=== PATIENT | male | born 1970 | race Caucasian/White ===

== ENCOUNTER 2023-06-17 08:30 | Outpatient (AMB) | payer BC, SELFPAY ==
[2023-06-17 08:50] VITALS: BP 128/78; PULSE 81; TEMP 36.7; O2SAT 98; BMI 34.7
--- NOTE | 2023-06-17 08:50 | MHC.OFFWIV ---
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 Reporting symptoms of sinus congestion, sore throat and difficulty swallowing. Low-grade fever. No family member is sick. No recent travel. Patient reports symptoms of malaise and fatigue. PFSH Social History Patient Tobacco Use Status: Never used Tobacco Physical Exam Vital Signs: Last Vital Signs Temp 98.1 F 06/17/23 08:50 Pulse 81 06/17/23 08:50 BP 128/78 06/17/23 08:50 Pulse Ox 98 06/17/23 08:50 Oxygen Delivery Method Room Air 06/17/23 08:50 BMI result Body Mass Index 34.7 Const General: cooperative and healthy appearing Nutritional Appearance: well nourished Orientation/consciousness: patient oriented x3 Limitations: no limitations HEENT Head: Yes normal to inspection Eyes General: appearance normal, both eyes and all related structures Neck Neck: Yes normal visual inspection Chest Chest palpation & inspection: normal palpation of entire chest wall Resp Effort & Inspection: normal respiratory effort Neuro General: patient oriented x3 Assessment & Plan Assessment & Plan (1) Upper respiratory tract infection: Code(s): J06.9 - Acute upper respiratory infection, unspecified Plan Antibiotics ordered. Increase fluid intake. Tylenol for aches and pains. If symptoms worsen, follow-up here for a recheck. Medications: New azithromycin take 500 mg today (day 1), then 250 mg for 4 days (days 2-5) PO 6 tabs 0RF Coding Level of Care Code Est Pt Level 3 (00223) Diagnoses Upper respiratory tract infection J06.9
== END 2023-06-17 09:26 | disposition home or self-care (01) ==
PROVIDERS: Visit Provider Internal Medicine
DX: J06.9 Acute upper respiratory infection, unspecified (principal)
CPT/HCPCS: 99213

== ENCOUNTER 2023-12-16 08:55 | Outpatient (AMB) | payer BC, SELFPAY ==
--- NOTE | 2023-12-16 09:00 | A.SPINEOV_ITS ---
Intake Visit Reasons: consultation for back pain Intake Note: Mr. Dixon is here today c/o back pain. Wire Winding Machine Tender Required: No Allergies amoxicillin Allergy (Mild, Verified 06/17/23 08:51) Rash Assessment & Plan Assessment & Plan (1) Back pain: Code(s): M54.9 - Dorsalgia, unspecified Category: Medical Plan This is a very nice 52-year-old gentleman self-referred who presents to the office today for evaluation of chronic back pain. He tells me he has had the pain going back many many years. Did have a flare-up of sciatica last year that was treated with an epidural injection by Dr. Granados and that went away. Subsequent facet blocks did not seem to give him much relief. The pain can be present will sitting or standing. It can be present in the morning and in the evenings. When he lays down at night it seems to be okay for awhile but if he sleeping too long, he will get up in the morning because it will cause his back ache. He is done numerous rounds of various conservative treatments including ibuprofen, Tylenol, years of chiropractic therapy. The injections as outlined above. Currently has no leg pain it is primarily lower lumbar pain. He has not done any formal physical therapy to this point. No acupuncture. PMH: History of hypothyroidism, cholecystectomy, anxiety, depression Social hx: He does not smoke, drink use any recreational drugs Medications: Zoloft, lorazepam, levothyroxine and [id number]-hrbdlmj medications as needed Allergies: None Physical exam: Normal gait, strength in the lower extremities is normal. Patellar reflexes normal, absent reflexes of the Achilles on the right. Imaging review: There is a lumbar MRI done at [place] in October 2022 showing transitional anatomy, at L5-S1 there is a mild to moderately degenerative disc with a right-sided disc herniation compressing the right S1 nerve root. The rest of the lumbar spine just shows some mild disc degeneration. Alignment is normal. Impression: 52-year-old gentleman self-referred presents to the office today for evaluation of chronic low back pain going on for probably decades now at this point. Has self-treated this through the years with rn progressive care unit, [id number] medications and as of last year started doing cortisone injections. He had a herniated disc at L5-S1 with sciatica down the right leg and that went away thankfully after the epidural injection. Subsequent facet blocks gave him no significant improvement. The pain does limit his quality of life but does not stop him from doing most of the activities he wants to do. Changing positions frequently helps a lot. Laying down at night seems to be the best position for him. Neurological exam is intact with the exception of an absent Achilles reflex which is likely due to the disc herniation last year. I would like to get a set of standing flexion-extension x-rays on him to rule out any occult instability. I would also like to repeat the MRI to see if the disc herniation has resolved or not, given that the pain in his back seems to continue despite the improvement in the sciatica I am wondering if he has not had some further collapse of the disc over the last year since it herniated which may explain why his pain continues in the low back. At this time, the pain is not at a level where I think he would need to undergo fusion surgery, but it may come to that at some point down the road if things progress. We talked about adding physical therapy as part of his regimen, but I did encourage him to avoid the chiropractic treatments because they have only been giving him more pain with the adjustments. Thank you for allowing us to care for your patient. The total time spent with this visit with this patient was 45 minutes reviewing history, physical exam, lumbar imaging review, and implementation of treatment plan or further diagnostic testing Francisco Rodriguez MD,PhD [facility] Orders: Orders XR lumbar spine 4V min Today M54.9 - Dorsalgia, unspecified MR lumbar spine wo con Today M54.9 - Dorsalgia, unspecified Coding Level of Care Code New Pt Level 4 (74833) Diagnoses Back pain M54.9
== END 2023-12-16 09:53 | disposition home or self-care (01) ==
PROVIDERS: Visit Provider Physician Assistant
DX: M54.9 Dorsalgia, unspecified (principal)
CPT/HCPCS: 99204

== ENCOUNTER 2023-12-16 08:55 | Outpatient (REF) | payer BC, SELFPAY ==
--- NOTE | ~2023-12-16 | XR_ITS ---
EXAMINATION: XR LUMBOSACRAL SPINE WITH OBLIQUES CLINICAL INFORMATION: Back pain. COMPARISON: None available. TECHNIQUE: 4 views of the lumbar spine. FINDINGS: Surgical clips right upper quadrant. Facet arthritis in the lower lumbar spine. Mild multilevel lumbar spondylosis with loss of disc space height at L5-S1. Alignment maintained on flexion and extension views. XR/XR lumbar spine 4V min IMPRESSION: Mild multilevel lumbar spondylosis with loss of disc space height at L5-S1.
== END 2023-12-16 08:56 | disposition home or self-care (01) ==
LOC: HO.HOSX 08:55
PROVIDERS: Visit Provider Physician Assistant
DX: M54.9 Dorsalgia, unspecified (principal)
CPT/HCPCS: 72110

== ENCOUNTER 2024-08-21 10:43 | Outpatient (REF) | payer BC, SELFPAY ==
--- OUTSIDE RECORDS SUMMARY | 2024-08-21 15:41 | XMS_ITS | Clinical Summary ---
Author Organization [address] Address [address] [place] [address] Phone Care Team Providers Care Clinical Pharmacy Manager Name Role Phone Francisco Syed Primary Care Provider [phone] Allergies Active Allergy Reactions Criticality Noted Date [...] Care Team Description 07/14/2024 Telephone Adult Medicine [address] [phone] Francisco Syed PA 07/07/2024 Telephone Adult Medicine [address] [phone] Francisco Seyd PA provider call back 06/24/2024 2:30 PM EST Office Visit Adult Medicine [address] [phone] Francisco Syed PA Primary hypertension (Primary Dx); [...] Alive DMII, Prostate CA, HTN Mother Alive CA (71), HTN, H ypothyroid Sister 1 Sister [...] care for your loved ones. For example, child psychiatrist or elderly care for an older adult? [...] Care Team (Late st Contact Info) Description 09/11/2024 9:30 AM EST Appointment [facility] CT Scan [address] [place] [id number] 10/30/2024 3:00 PM EDT Office Visit Adult Medicine [facility] [address] [place] [phone] Francisco Syed PA [address] [place] [address] Health Maintenance Due Date Last Done Comments [...] LAB CHEMISTRY METHOD 07/01/2024 10:39 AM EST [facility] Blood Venous blood specimen / Unknown Venipuncture / Unknown 07/01/2024 8:38 AM EST 07/01/2024 8:38 AM EST Francisco RM LAB BLOOD ORDERAB LES [facility] [address] [place] [address], * Prostate specific antigen screen (06/26/2024 8:34 AM EST) [facility] PSA 0.57 0.00 - 4.00 ng/mL LAB CHEMISTRY METHOD 06/26/2024 10:42 AM EST [facility] Blood Venous blood specimen / Unknown Venipuncture / Unknown 06/26/2024 8:34 AM EST 06/26/2024 8:34 AM EST Narrative [facility] - 06/26/2024 10:42 AM EST The Siemens Advia App[employer] Chemiluminescent Immunoassay is used. Results obtained with different assay methods or kits cannot be used interchangeably. Results cannot be interpreted as absolute evidence of the presence or absence of malignant disease. Francisco RM LAB BLOOD ORDERAB LES [facility] [address] [place] [address], * Thyroid stimulating hormone with reflex to free t4 and free t3 (06/26/2024 8:34 AM EST) [facility] TSH 2.90 0.40 - 4.00 mcIU/mL LAB CHEMISTRY METHOD 06/26/2024 10:42 AM EST [facility] Blood Venous blood specimen / Unknown Venipuncture / Unknown 06/26/2024 8:34 AM EST 06/26/2024 8:34 AM EST Francisco MR LAB BLOOD ORDERAB LES [facility] [address] [place] [address], [place] [phone] * (ABNORMAL) Lipid panel with reflex to direct LDL (06/26/2024 8:34 AM EST) [facility] Cholesterol 186 0 - 200 mg/dL LAB CHEMISTRY METHOD 06/26/2024 10:39 AM EST [facility] Triglycerides 88 0 - 150 mg/dL LAB CHEMISTRY METHOD 06/26/2024 10:39 AM EST [facility] HDL 63 >=40 mg/dL LAB CHEMISTRY METHOD 06/26/2024 10:39 AM [facility] LDL Calculated 105(H) 0 - 100 mg/dL LAB CHEMISTRY METHOD 06/26/2024 10:39 AM EST [facility] VLDL Cholesterol Jose Antonio 17.6 mg/dL LAB CHEMISTRY METHOD 06/26/2024 10:39 AM [facility] Non HDL Chol. (LDL+VLDL) 123 <145 mg/dL LAB CHEMISTRY METHOD 06/26/2024 10:39 AM [facility] Chol/HDL Ratio 3.0 0.0 - 4.4 LAB CHEMISTRY METHOD 06/26/2024 10:39 AM [facility] Blood Venous blood specimen / Unknown Venipuncture / Unknown 06/26/2024 8:34 AM EST 06/26/2024 8:34 AM EST Francisco RM LAB BLOOD ORDERAB LES [facility] [address] [place] [address], * Hemoglobin A1c (06/26/2024 8:34 AM EST) Hemoglobin A1C 5.3 <6.5 % LAB CHEMISTRY METHOD 06/26/2024 1:42 PM EST [facility] Mean Bld Glu Estim. 105 mg/dL LAB CHEMISTRY METHOD 06/26/2024 1:42 PM EST [facility] Blood Venous blood specimen / Unknown Venipuncture / Unknown 06/26/2024 8:34 AM EST 06/26/2024 8:34 AM EST Francisco RM LAB BLOOD ORDERAB LES [facility] [address] [place] [address], * (ABNORMAL) Comprehensive metabolic panel (06/26/2024 8:34 AM EST) Sodium 141 133 - 145 mmol/L LAB CHEMISTRY METHOD 06/26/2024 10:39 AM [facility] Potassium 4.8 3.5 - 5.5 mmol/L LAB CHEMISTRY METHOD 06/26/2024 10:39 AM [facility] Chloride 109 96 - 110 mmol/L LAB CHEMISTRY METHOD 06/26/2024 10:39 AM [facility] CO2 28 21 - 32 mmol/L LAB CHEMISTRY METHOD 06/26/2024 10:39 AM [facility] Anion Gap 4 3 - 11 LAB CHEMISTRY METHOD 06/26/2024 10:39 AM [facility] Glucose 127(H) 70 - 100 mg/dL LAB CHEMISTRY METHOD 06/26/2024 10:39 AM [facility] BUN 10 5 - 25 mg/dL LAB CHEMISTRY METHOD 06/26/2024 10:39 AM [facility] Creatinine 0.88 0.70 - 1.30 mg/dL LAB CHEMISTRY METHOD 06/26/2024 10:39 AM [facility] eGFR 102 >=60 mL/min/1. 73m2 LAB CHEMISTRY METHOD 06/26/2024 10:39 AM [facility] Comment:Calculation based on the??Chronic Kidney Disease Epidemiology Collaboration (CKD-EPI) equation refit??without adjustment for race. BUN/Creatinine Ratio 11.4 LAB CHEMISTRY METHOD 06/26/2024 10:39 AM [facility] Calcium 9.7 8.5 - 10.5 mg/dL LAB CHEMISTRY METHOD 06/26/2024 10:39 AM [facility] AST (SGOT) 23 10 - 42 unit/L LAB CHEMISTRY METHOD 06/26/2024 10:39 AM [facility] ALT (SGPT) 43 10 - 60 unit/L LAB CHEMISTRY METHOD 06/26/2024 10:39 AM [facility] Alkaline Phosphatase 88 42 - 121 unit/L LAB CHEMISTRY METHOD 06/26/2024 10:39 AM [facility] Total Protein 6.9 6.0 - 8.0 g/dL LAB CHEMISTRY METHOD 06/26/2024 10:39 AM [facility] Albumin 3.8 3.2 - 5.0 g/dL LAB CHEMISTRY METHOD 06/26/2024 10:39 AM [facility] Total Bilirubin 0.5 0.0 - 1.4 mg/dL LAB CHEMISTRY METHOD 06/26/2024 10:39 AM [facility] Blood Venous blood specimen / Unknown Venipuncture / Unknown 06/26/2024 8:34 AM EST 06/26/2024 8:34 AM EST Francisco MR LAB BLOOD ORDERAB LES [facility] [address] [place] [address], * Hepatitis C Screening (05/21/2022) Hepatitis C Screening ABSTRACTED Historical Provider MD DON Gaytan * Colonoscopy (05/23/2020) Colonoscopy no interpretation , abstracted Anatomical Region Laterality Modality Other Historical Provider MD DON Gaytan from Last 3 Months or Most Recently Relevant to Health Maintenance Care Teams Clinical Pharmacy Manager Relationship Specialty Start Date End Date Francisco Syed PA [address] [place] [id number] PCP - General Internal Medicine 06/24/24
[2024-08-21 16:20] LABS: Influenza A PCR NEGATIVE (Negative); Influenza B PCR NEGATIVE (Negative); Resp Syncy Virus RNA Qual PCR NEGATIVE (Negative); SARS COV2 PCR INHOUSE NEGATIVE (Negative)
== END 2024-08-21 10:44 | disposition home or self-care (01) ==
LOC: HO.LNP 10:43
PROVIDERS: Visit Provider Physician Assistant
DX: B34.9 Viral infection, unspecified (principal); R09.89 Other specified symptoms and signs involving the circulatory and respiratory systems
CPT/HCPCS: 0241U

== ENCOUNTER 2024-08-21 10:43 | Outpatient (AMB) | payer BC, SELFPAY ==
--- NOTE | 2024-08-21 11:25 | MHC.OFFWIV ---
Intake Vital Signs 08/21/24 11:29 Weight 106.141 kg BP 122/80 Blood Pressure Location Rt brachial Position Sitting Pulse 76 Pulse Source Pulse Oximeter Temp 97.8 F Temp Source Oral Pulse Oximetry (%) 98 Oxygen Delivery Method Room Air Intake Visit Reasons: EP ? sinus infection Intake Note: Patient here for sinus congestion, post nasal drip, head congestion that has been present since Saturday. Patient Tobacco Use Status: Never used Tobacco Allergies amoxicillin Allergy (Mild, Verified 08/21/24 11:30) Rash Do you need a note to return to daycare/school/sports/work: No HPI HPI Comments History of Present Illness Details 53 year old male presents w/ sinus congestion, post nasal drip, head congestion. cough that has been present since Saturday. Patient suffers from sinus infections yearly ( multiple/year) reports this feels simalar. He is concerned however becuase his coworker tested + for the flu and he was around him on saturday. denies fevers, chills, cp, sob, n/v/d, abd pain PE benign hx and pe concerning for sinusitis vs viral illness. Unlikley pe, bronchitits, acs, pna, meningitis, encephalitis Plan- viral test will send z pack patient knows to not take this unless viral test are negative Knows to return w/ new or worsening sx. [facility] Social History Patient Tobacco Use Status: Never used Tobacco Review of Systems Const All systems reviewed & are unremarkable except as noted in HPI and below Physical Exam Vital Signs: Last Vital Signs Temp 97.8 F 08/21/24 11:29 Pulse 76 08/21/24 11:29 BP 122/80 08/21/24 11:29 Pulse Ox 98 08/21/24 11:29 Oxygen Delivery Method Room Air 08/21/24 11:29 vss Appearance: Alert.? Oriented X3.? No acute distress.? Head: Normocephalic, atraumatic, no step-offs or deformities Eyes: Pupils equal, round and reactive to light.? CVS: Normal heart rate and rhythm.? Pulses normal.? Respiratory: No respiratory distress.? Breath sounds normal.? Abdomen: Soft and nontender.? Skin: Skin warm and dry.? Normal skin color.? Normal skin turgor.? Extremities: No lower extremity edema.? No calf ttp. 5/5 strength to bilateral upper and lower extremities Back: No midline tenderness, no C-spine tenderness, full range of motion, no CVA tenderness bilaterally Neuro: Oriented X 3.? No motor deficit.? No sensory deficit. CN 2-12 intact Assessment & Plan Assessment & Plan (1) Viral illness: Code(s): B34.9 - Viral infection, unspecified Plan Take your medications as prescribed. If you were prescribed antibiotics today, it is important that you take your medication to their entirety, do not skip any doses, do not finish them early. Follow-up with your primary care provider this week. Return to the emergency department with new or worsening symptoms. In case of emergency call 911 Coding Level of Care Code Est Pt Level 3 (74143) Diagnoses Viral illness B34.9
[2024-08-21 11:29] VITALS: BP 122/80; PULSE 76; TEMP 36.6; O2SAT 98
--- OUTSIDE RECORDS SUMMARY | 2024-08-21 12:17 | XMS_ITS | Encounter Summary ---
Author Organization [facility] Address [address] [place] [address] Care Team Providers Care Giant Tire Repairer Name Role Phone Dino Harrell MD Primary Care Provider Unavail able Francisco Syed PA-C Primary Care Provider [phone] Encounter Details Date Type Department Care Team Description 01/23/2019 Hospital Medical Records [address] [place] [address] DesiletsSteve MD Social History Tobacco Use Types Packs/Day Years Used Date Smoking Tobacco: Former Cigarettes 1 15 Q uit: 10/27/2014 Smokeless Tobacco: Never Alcohol Use Standard Drinks/Week Comments Yes 5 (1 standard drink = 0.6 oz pur e alcohol) occ Sex Assigned at Date Recorded Male 11/10/2020 6:18 AM E DT documented as of this encounter Plan of Treatment Not on file documented as of this encounter Visit Diagnoses Not on filedocumented in this encounter Care Teams Giant Tire Repairer Relationship Specialty Start Date End Date Dino Harrell MD PCP - General Internal Medicine 04/21/12 03/22/20 Francisco Syed PA-C [address] [place] [id number] PCP - General Internal Medicine 03/23/20 documented as of this encounter
--- OUTSIDE RECORDS SUMMARY | 2024-08-21 12:17 | XMS_ITS | Encounter Summary ---
Author Organization [facility] Address [address] [place] [address] Care Team Providers Care Automation Software Engineer Name Role Phone Dino Harrell MD Primary Care Provider Unavail able Francisco Syed PA-C Primary Care Provider [phone] Encounter Details Date Type Department Care Team Description 06/12/2019 Hospital Medical Records [address] [place] [address] Charles Mays MD [address] [place] [id number] Social History Tobacco Use Types Packs/Day Years [...] on filedocumented in this encounter Care Teams Automation Software Engineer Relationship Specialty Start Date End Date Dino Harrell MD PCP - General Internal Medicine 04/21/12 03/22/20 Francisco Syed PA-C [address] [place] [address] [id number] PCP - General Internal Medicine 03/23/20 documented as of this encounter
--- OUTSIDE RECORDS SUMMARY | 2024-08-21 12:17 | XMS_ITS | Encounter Summary ---
Author Organization [facility] Address [address] [place] [address] Care Team Providers Care Database Architect Name Role Phone Dino Harrell MD Primary Care Provider Unavail able Francisco Syed PA-C Primary Care Provider [phone] Encounter Details Date Type Department Care Team Description 01/11/2014 Controlled Substance Contract with Plan Medical Records [address] [place] [address] Abstract, Provider Social History Tobacco Use Types Packs/Day Years Used Date Smoking Tobacco: Some Days Cigarettes Smokeless Tobacco: Never Alcohol Use Standard Drinks/Week Comments Yes 5 (1 standard drink = 0.6 oz pur e alcohol) Sex Assigned at Date Recorded Male 11/10/2020 6:18 AM E DT documented as of this encounter Plan of Treatment Not on file documented as of this encounter Visit Diagnoses Not on filedocumented in this encounter Care Teams Database Architect Relationship Specialty Start Date End Date Dino Harrell MD PCP - General Internal Medicine 04/21/12 03/22/20 Francisco Syed PA-C [address] [place] [address] PCP - General Internal Medicine 03/23/20 documented as of this encounter
--- OUTSIDE RECORDS SUMMARY | 2024-08-21 12:17 | XMS_ITS | Encounter Summary ---
Author Organization [facility] Address [address] [place] [address] Care Team Providers Care Filter Press Tender Head Name Role Phone Dino Harrell MD Primary Care Provider Unavail able Francisco Syed PA-C Primary Care Provider [phone] Encounter Details Date Type Department Care Team Description 07/03/2019 [facility] Medical Records [address] [place] [id number] Abstract, Provider Social History Tobacco Use Types Packs/Day Years Used Date Smoking Tobacco: Former Cigarettes Q uit: 10/27/2014 Smokeless Tobacco: Never Alcohol Use Standard Drinks/Week Comments Yes 5 (1 standard drink = 0.6 oz pur e alcohol) Sex Assigned at Date Recorded Male 11/10/2020 6:18 AM E DT documented as of this encounter Plan of Treatment Not on file documented as of this encounter Visit Diagnoses Not on filedocumented in this encounter Care Teams Filter Press Tender Head Relationship Specialty Start Date End Date Dino Harrell MD PCP - General Internal Medicine 04/21/12 03/22/20 Francisco Syed PA-C [address] [place] [id number] PCP - General Internal Medicine 03/23/20 documented as of this encounter
--- OUTSIDE RECORDS SUMMARY | 2024-08-21 12:17 | XMS_ITS | Clinical Summary ---
Author Organization [address] Address [address] [place] [address] Phone Care Team Providers Care Improvement Spec Name Role Phone Francisco Syed Primary Care Provider [phone] Allergies Active Allergy Reactions Criticality Noted Date Comments Amoxicillin 06/07/2017 rash Medications Medication Sig Dispensed Refills Start Date End Date Status levothyroxine (Synthroid) 50 mcg tablet Take 1 tablet (50 mcg total) by mouth 1 (one) time each day. 04/23/2024 Active naproxen (NAPROSYN) 500 mg tablet Take 1 Tablet by mouth 2 times daily (with meals). 10/26/2022 Active albuterol HFA (PROAIR HFA ; PROVENTIL HFA ; VENTOLIN HFA) 90 mcg/actuation inhaler Inhale 2 Puffs into the lungs 4 times daily as needed for Cough, Wheezing or Shortness of Breath. 09/16/2019 Active fluticasone propionate (FLONASE) 50 mcg/actuation nasal spray Administer 1 spray into each nostril 2 (two) times a day. Shake gently. Before first use, prime pump. After use, clean tip and replace cap. 48 g 1 06/24/2024 Active sertraline (ZOLOFT) 100 mg tablet Take 1.5 tablets (150 mg total) by mouth 1 (one) time each day. 135 each 3 06/24/2024 Active LORazepam (ATIVAN) 0.5 mg tablet Take 1 tablet (0.5 mg total) by mouth 1 (one) time each day. Max Daily Amount: 0.5 mg 30 tablet 06/24/2024 Active testosterone 20.25 mg/1.25 gram (1.62 %) gel in metered-dose pumpIndications:Hy pogonadism in male Place 2 Act (40.5 mg of testosterone total) on the skin 1 (one) time each day. Max Daily Amount: 40.5 mg of testosterone 75 g 5 07/13/2024 Active Active Problems Problem Noted Date Diagnosed Date Hypogonadism in male 07/09/2024 Choledocholithiasis 03/15/2019 Overview (05/12/2024): ERCP and stone extraction, 01/23/2019 Acute cholangitis 02/09/2019 Overview (05/12/2024): ERCP 01/23/2019, Dr. Lei Prediabetes 08/22/2013 Mixed hyperlipidemia 12/10/2012 Overview (05/12/2024): LDL cholesterol 137, 05/06/2012. Anxiety 04/22/2012 GERD (gastroesophageal reflux disease) 2 HTN (hypertension) 04/22/2012 Hypothyroidism 04/22/2012 Obesity (BMI 30-39.9) 04/22/2012 Encounters Date Type Department Care Team Description 07/14/2024 Telephone Adult Medicine [address] [phone] Francisco Syed PA 07/07/2024 Telephone Adult Medicine [address] [phone] Francisco Syed PA provider call back 06/24/2024 2:30 PM EST Office Visit Adult Medicine [address] [phone] Francisco Syed PA Primary hypertension (Primary Dx); Need for prophylactic vaccination and inoculation against influenza; Mixed hyperlipidemia; Prediabetes; Obesity (BMI 30-39.9); Hypothyroidism, unspecified type; Choledocholithiasis; Anxiety; Gastroesophageal reflux disease without esophagitis; Pulsatile tinnitus; Dizziness from Last 3 Months Immunizations Name Administration Dates Next Due Influenza Quadravalent, MDCK , 0.5ml, with preservative (Flucelvax) 6mo and older 06/07/2017 Influenza trivalent, 0.5mL, preservative free (Fluarix; FluLaval; Fluzone) ages 6mo and older (Afluria) 3 years and older 06/15/2016,06/12/2013,06/12/2012 Influenza trivalent, MDCK, 0 .5mL, preservative free (Flucelvax) 6mo and older 06/24/2024 Pfizer (ages 12 & older) Bivalent, COVID-19 08/30 Pfizer SARS-CoV-2 COVID-19, mRNA, LNP-S, preservative free 12/16/2020,11/23/2020 Td Tetanus diptheria (Tdvax) 7yo and older 10/26 Tdap Tetanus diptheria acell ular pertussis (Boostrix; Adacel) 7yo and older 04/22/2012 Zoster recombinant (Shingrix ) 19yo and older 01/09/2021 Surgical History Surgery Date Site/Laterality Comments MULTIPLE TOOTH EXTRACTIONS PROCEDURE: HISTORICAL DENTAL EXTRACTION OTHER SURGICAL HISTORY PROCEDURE: ---- OTHER ----; COMMENT: anal fissure CHOLECYSTECTOMY PROCEDURE: HISTORICAL CHOLECYSTECTOMY Medical History Medical History Date Comments Hypothyroidism 2003 DX:Hypothyroidis m HTN (hypertension) 2003 DX:HTN (hyper tension) Obesity (BMI 30-39.9) DX:Obesity (BMI 30-39.9) HTN (hypertension) 04/22/2012 DX:HTN (hyper tension) Hypothyroidism 04/22/2012 DX:Hypothyroidis m GERD (gastroesophageal reflux disease) 04/22/2012 DX:GERD (gastroesophageal reflux disease) Anxiety 04/22/2012 DX:Anxiety Obesity (BMI 30-39.9) 04/22/2012 DX:Obesity (BMI 30-39.9) Family History Medical History Relation Name Comments Diabetes Father Esophageal cancer Father Prostate cancer Father Heart attack Mother Breast cancer Sister 1 Relation Name Status Comments Brother 1 Alive HTN, DMII Brother 2 Alive Father Alive DMII, Prostate CA, HTN Mother Alive [place] (71), HTN, H ypothyroid Sister 1 Sister 2 Alive HTN Sister 3 Alive Social History Tobacco Use Types Packs/Day Years Used Date Smoking Tobacco: Former Cigarettes Q uit: 10/27/2014 Smokeless Tobacco: Never Tobacco Cessation:Counseling Given: Not Answered Alcohol Use Standard Drinks/Week Comments Yes 5 (1 standard drink = 0.6 oz pur e alcohol) Housing Instability Answer Date Recorde d Are you worried that in the next 2 months you may not have stable housing? No 06/17/2024 Food Access & Nutrition Answer Date Rec orded Do you have access to a vari ety of food including fruits and vegetables? Yes 06/17/2024 Access to Healthcare Answer Date Record ed Within the last 3 months, ho w many times did you visit the emergency department for your medical care? 0 06/17/2024 Health Literacy Answer Date Recorded How often do you need to hav e someone help you when you read instructions, pamphlets, or other written material from your doctor or pharmacy? Never 06/17/2024 Caregiver: How often do you need to have someone help you when you read instructions, pamphlets, or other written material from your doctor or pharmacy? Not on file 06/17/2024 Financial Risk Answer Date Recorded How hard is it for you to pa y for the very basics like food, housing, medical care, and air conditioning / heating? Not very hard 06/17/2024 Transportation Answer Date Recorded Has the lack of transportati on kept you from meetings, work, or from getting things needed for daily living? No Has the lack of transportati on kept you from medical appointments or from getting medications? No 06/17/2024 Social Isolation Answer Date Recorded How often do you feel lonely or isolated from th ose around you? Never 06/17/2024 Food Risk Answer Date Recorded Within the past 12 months we worried whether our food would run out before we got money to buy more. Never true 06/17/2024 Within the past 12 months th e food we bought just didn't last and we didn't have money to get more. Never true 06/17/2024 Dependent Care Answer Date Recorded Do you need help finding or paying for care for your loved ones. For example, early childhood lead teacher or elderly care for an older adult? No 06/17/2024 Education Answer Date Recorded Do you think completing more education or training, like finishing a GED, going to college, or learning a trade, would be helpful for you? No 06/17/2024 Employment and Income Answer Date Recor ded During the last four weeks, have you been actively looking for work? No 06/17/2024 Living Situation Answer Date Recorded What is your living situation? 1 08/17/2023 Sex and Gender Information Value Date Recorded Sex Assigned at Not on file Gender Identity Not on file Sexual Orientation Not on file Job Start Date Occupation Industry Not on file Not on file Not on file Obstetrics History Last Filed Vital Signs Vital Sign Reading Time Taken Comments Blood Pressure 119/83 06/24/2024 2:31 PM EST Pulse 104 06/24/2024 2:31 PM EST Temperature 36.7 ??C (98.1 ??F) 06/24/2024 2:31 PM ES T Respiratory Rate 14 06/24/2024 2:31 PM EST Oxygen Saturation - - Inhaled Oxygen Concentration - - Weight 108 kg (237 lb) 06/24/2024 2:31 PM EST Height 177.8 cm (5' 10 ) 06/24/2024 2:31 PM EST Body Mass Index 34.01 06/24/2024 2:31 PM EST Plan of Treatment Upcoming Encounters Date Type Department Care Team (Late st Contact Info) Description 10/30/2024 3:00 PM EDT Office Visit Adult Medicine [facility] [address] [place] [address] Francisco Syed PA [address] [place] [address] Health Maintenance Due Date Last Done Comments Hepatitis B Vaccines (1 of 3 - 19+ 3-dose series) 12/20/1987 Zoster Vaccines (2 of 2) 03/06/2021 01/09/2021 HIV Screening 07/07/2022 COVID-19 Vaccine ( season) 2024 09/20/2022, 07/09/2021, 12/16/2020, Additional history exists Depression Screening 06/17/2025 06/17/2024 Social Influencers of Health Screening 06/17/2025 06/17/2024 Hypertension/CHF/CAD Annual BMP Blood Test 06/26/2025 06/26/2024, 10/30/2023 Cholesterol Screening (Lipid Panel) 06/26/2029 06/26/2024, 10/30/2023 Colorectal Cancer Screening: Colonoscopy 05/23/2030 05/23/2020 DTaP,Tdap,and Td Vaccines (3 - Td or Tdap) 10/26/2032 10/26/2022, 04/22/2012 Hepatitis C Screening Completed 05/21/2022 Influenza Vaccine Completed 06/24/2024, , 06/07/2017, Additional history exists HIB Vaccines Aged Out No longer eligi ble based on patient's age to complete this topic HPV Vaccines Aged Out No longer eligi ble based on patient's age to complete this topic Hepatitis A Vaccines Aged Out No long er eligible based on patient's age to complete this topic IPV Vaccines Aged Out No longer eligi ble based on patient's age to complete this topic MMR Vaccines Aged Out No longer eligi ble based on patient's age to complete this topic Meningococcal ACWY Vaccine Aged Out N o longer eligible based on patient's age to complete this topic Pneumococcal Vaccine: Pediatrics (0 to 5 Years) and At-Risk Patients (6 to 64 Years) Aged Out No longer eligible based on patient's age to complete this topic RSV Immunization Patients Under 20 months Aged Out No longer eligible based on patient's age to complete this topic Varicella Vaccines Aged Out No longer eligible based on patient's age to complete this topic Procedures Procedure Name Priority Date/Time Associated Diagnosis Comments TESTOSTERONE, TOTAL Routine 07/01/2024 8 :38 AM EST Hypogonadism male PROSTATE SPECIFIC ANTIGEN SCREEN Routine 06/26/2024 8:34 AM EST Need for prophylactic vaccination and inoculation against influenza Mixed hyperlipidemia Prediabetes Obesity (BMI 30-39.9) Primary hypertension Hypothyroidism, unspecified type Choledocholithiasis Anxiety Gastroesophageal reflux disease without esophagitis THYROID STIMULATING HORMONE WITH REFLEX TO FREE T4 AND FREE T3 Routine 06/26/2024 8:34 AM EST Need for prophylactic vaccination and inoculation against influenza Mixed hyperlipidemia Prediabetes Obesity (BMI 30-39.9) Primary hypertension Hypothyroidism, unspecified type Choledocholithiasis Anxiety Gastroesophageal reflux disease without esophagitis HEMOGLOBIN A1C Routine 06/26/2024 8:34 AM EST Need for prophylactic vaccination and inoculation against influenza Mixed hyperlipidemia Prediabetes Obesity (BMI 30-39.9) Primary hypertension Hypothyroidism, unspecified type Choledocholithiasis Anxiety Gastroesophageal reflux disease without esophagitis COMPREHENSIVE METABOLIC PANEL Routine 06/26/2024 8:34 AM EST Need for prophylactic vaccination and inoculation against influenza Mixed hyperlipidemia Prediabetes Obesity (BMI 30-39.9) Primary hypertension Hypothyroidism, unspecified type Choledocholithiasis Anxiety Gastroesophageal reflux disease without esophagitis LIPID PANEL WITH REFLEX TO DIRECT LDL Routine 06/26/2024 8:34 AM EST Need for prophylactic vaccination and inoculation against influenza Mixed hyperlipidemia Prediabetes Obesity (BMI 30-39.9) Primary hypertension Hypothyroidism, unspecified type Choledocholithiasis Anxiety Gastroesophageal reflux disease without esophagitis TESTOSTERONE, TOTAL Routine 06/26/2024 8 :34 AM EST Need for prophylactic vaccination and inoculation against influenza Mixed hyperlipidemia Prediabetes Obesity (BMI 30-39.9) Primary hypertension Hypothyroidism, unspecified type Choledocholithiasis Anxiety Gastroesophageal reflux disease without esophagitis HEPATITIS C SCREENING Routine 05/21/2022 COLONOSCOPY Routine 05/23/2020 from Last 3 Months or Most Recently Relevant to Health Maintenance Results * Testosterone, total (07/01/2024 8:38 AM EST) Only the most recent of2 resultswithin the time period is included. Testosterone 246 229 - 902 ng/dL LAB CHEMISTRY METHOD 07/01/2024 10:39 AM EST [facility] Blood Venous blood specimen / Unknown Venipuncture / Unknown 07/01/2024 8:38 AM EST 07/01/2024 8:38 AM EST Francisco RM LAB BLOOD ORDERAB LES [facility] [address] [place] [address], * Prostate specific antigen screen (06/26/2024 8:34 AM EST) PSA 0.57 0.00 - 4.00 ng/mL LAB CHEMISTRY METHOD 06/26/2024 10:42 AM EST [facility] Blood Venous blood specimen / Unknown Venipuncture / Unknown 06/26/2024 8:34 AM EST 06/26/2024 8:34 AM EST Narrative [facility] - 06/26/2024 10:42 AM EST The Siemens [employer] Chemiluminescent Immunoassay is used. Results obtained with different assay methods or kits cannot be used interchangeably. Results cannot be interpreted as absolute evidence of the presence or absence of malignant disease. Francisco RM LAB BLOOD ORDERAB LES Performing Organization Address City/[facility]/ZIP Co de Phone Number [facility] [address] [place] [address], * Thyroid stimulating hormone with reflex to free t4 and free t3 (06/26/2024 8:34 AM EST) Pathologist [facility] [place] TSH 2.90 0.40 - 4.00 mcIU/mL LAB CHEMISTRY METHOD 06/26/2024 10:42 AM EST [facility] Blood Venous blood specimen / Unknown Venipuncture / Unknown 06/26/2024 8:34 AM EST 06/26/2024 8:34 AM EST Francisco RM LAB BLOOD ORDERAB LES [facility] [address] [place] [address], [place] [phone] * (ABNORMAL) Lipid panel with reflex to direct LDL (06/26/2024 8:34 AM EST) Pathologist [facility] [place] Cholesterol 186 0 - 200 mg/dL LAB CHEMISTRY METHOD 06/26/2024 10:39 AM EST [facility] Triglycerides 88 0 - 150 mg/dL LAB CHEMISTRY METHOD 06/26/2024 10:39 AM [facility] HDL 63 >=40 mg/dL LAB CHEMISTRY METHOD 06/26/2024 10:39 AM [facility] LDL Calculated 105(H) 0 - 100 mg/dL LAB CHEMISTRY METHOD 06/26/2024 10:39 AM [facility] VLDL Cholesterol Jose Antonio 17.6 mg/dL LAB CHEMISTRY METHOD 06/26/2024 10:39 AM [facility] Non HDL Chol. (LDL+VLDL) 123 <145 mg/dL LAB CHEMISTRY METHOD 06/26/2024 10:39 AM [facility] Chol/HDL Ratio 3.0 0.0 - 4.4 LAB CHEMISTRY METHOD 06/26/2024 10:39 AM [facility] Blood Venous blood specimen / Unknown Venipuncture / Unknown 06/26/2024 8:34 AM EST 06/26/2024 8:34 AM EST Francisco RM LAB BLOOD ORDERAB LES [facility] [address] [place] [address], * Hemoglobin A1c (06/26/2024 8:34 AM EST) Hemoglobin A1C 5.3 <6.5 % LAB CHEMISTRY METHOD 06/26/2024 1:42 PM EST [facility] Mean Bld Glu Estim. 105 mg/dL LAB CHEMISTRY METHOD 06/26/2024 1:42 PM [facility] Blood Venous blood specimen / Unknown Venipuncture / Unknown 06/26/2024 8:34 AM EST 06/26/2024 8:34 AM EST Francisco RM LAB BLOOD ORDERAB LES [facility] [address] [place] [address], [place] [phone] * (ABNORMAL) Comprehensive metabolic panel (06/26/2024 8:34 AM EST) Sodium 141 133 - 145 mmol/L LAB CHEMISTRY METHOD 06/26/2024 10:39 AM [facility] Potassium 4.8 3.5 - 5.5 mmol/L LAB CHEMISTRY METHOD 06/26/2024 10:39 AM [facility] Chloride 109 96 - 110 mmol/L LAB CHEMISTRY METHOD 06/26/2024 10:39 AM [facility] CO2 28 21 - 32 mmol/L LAB CHEMISTRY METHOD 06/26/2024 10:39 AM [facility] Anion Gap 4 3 - 11 LAB CHEMISTRY METHOD 06/26/2024 10:39 AM [facility] Glucose 127(H) 70 - 100 mg/dL LAB CHEMISTRY METHOD 06/26/2024 10:39 AM [facility] BUN 10 5 - 25 mg/dL LAB CHEMISTRY METHOD 06/26/2024 10:39 AM [facility] Creatinine 0.88 0.70 - 1.30 mg/dL LAB CHEMISTRY METHOD 06/26/2024 10:39 AM [facility] eGFR 102 >=60 mL/min/1. 73m2 LAB CHEMISTRY METHOD 06/26/2024 10:39 AM [facility] Comment:Calculation based on the??Chronic Kidney Disease Epidemiology Collaboration (CKD-EPI) equation refit??without adjustment for race. BUN/Creatinine Ratio 11.4 LAB CHEMISTRY METHOD 06/26/2024 10:39 AM [facility] Calcium 9.7 8.5 - 10.5 mg/dL LAB CHEMISTRY METHOD 06/26/2024 10:39 AM [facility] AST (SGOT) 23 10 - 42 unit/L LAB CHEMISTRY METHOD 06/26/2024 10:39 AM [facility] ALT (SGPT) 43 10 - 60 unit/L LAB CHEMISTRY METHOD 06/26/2024 10:39 AM EST [facility] Alkaline Phosphatase 88 42 - 121 unit/L LAB CHEMISTRY METHOD 06/26/2024 10:39 AM EST [facility] Total Protein 6.9 6.0 - 8.0 g/dL LAB CHEMISTRY METHOD 06/26/2024 10:39 AM EST [facility] Albumin 3.8 3.2 - 5.0 g/dL LAB CHEMISTRY METHOD 06/26/2024 10:39 AM [facility] Total Bilirubin 0.5 0.0 - 1.4 mg/dL LAB CHEMISTRY METHOD 06/26/2024 10:39 AM [facility] Blood Venous blood specimen / Unknown Venipuncture / Unknown 06/26/2024 8:34 AM EST 06/26/2024 8:34 AM EST Francisco RM LAB BLOOD ORDERAB LES [facility] [address] [place] [address], * Hepatitis C Screening (05/21/2022) Pathologist [facility] Hepatitis C Screening ABSTRACTED Historical Provider MD DON JOSHI E * Colonoscopy (05/23/2020) Colonoscopy no interpretation , abstracted Anatomical Region Laterality Modality Other Historical Provider MD DON Gaytan from Last 3 Months or Most Recently Relevant to Health Maintenance Care Teams Improvement Spec Relationship Specialty Start Date End Date Francisco Syed PA [address] [place] [address] PCP - General Internal Medicine 06/24/24
--- OUTSIDE RECORDS SUMMARY | 2024-08-21 12:18 | XMS_ITS | Encounter Summary ---
Author Organization [facility] Address [address] [place] [address] Care Team Providers Care Brake Specialist Name Role Phone Francisco Syed PA-C Primary Care Provider [phone] Encounter Details Date Type Department Care Team Description 03/26/2023 Oil Burner Repairer Report Medical Records [address] [place] [address] Ramón Krause PA-C Social History Tobacco Use Types Packs/Day Years [...] on filedocumented in this encounter Care Teams Brake Specialist Relationship Specialty Start Date End Date Francisco Syed PA-C [address] [place] [id number] PCP - General Internal Medicine 03/23/20 documented as of this encounter
--- OUTSIDE RECORDS SUMMARY | 2024-08-21 12:18 | XMS_ITS | Encounter Summary ---
Author Organization [facility] Address [address] [place] [address] Care Team Providers Care Radio Repairer Domestic Name Role Phone Dino Harrell MD Primary Care Provider Unavail able Francisco Syed PA-C Primary Care Provider [phone] Encounter Details Date Type Department Care Team Description 12/12/2012 Release of Information Medical Records [address] [place] [address] Abstract, Provider Social History Tobacco Use Types [...] on filedocumented in this encounter Care Teams Radio Repairer Domestic Relationship Specialty Start Date End Date Dino Harrell MD PCP - General Internal Medicine 04/21/12 03/22/20 Francisco Syed PA-C [address] [place] [id number] PCP - General Internal Medicine 03/23/20 documented as of this encounter
--- OUTSIDE RECORDS SUMMARY | 2024-08-21 12:18 | XMS_ITS | Encounter Summary ---
Author Organization [facility] Address [address] [place] [address] Care Team Providers Care Soaker Meat Name Role Phone Dino Harrell MD Primary Care Provider Unavail able Francisco Syed PA-C Primary Care Provider [phone] Encounter Details Date Type Department Care Team Description 07/10/2014 Refill Adult Medicine [address] [address] Dino Harrell MD Social History Tobacco Use Types Packs/Day [...] on filedocumented in this encounter Care Teams Soaker Meat Relationship Specialty Start Date End Date Dino Harrell MD PCP - General Internal Medicine 04/21/12 03/22/20 Francisco Syed PA-C [address] [place] [id number] PCP - General Internal Medicine 03/23/20 documented as of this encounter
--- OUTSIDE RECORDS SUMMARY | 2024-08-21 12:18 | XMS_ITS | Encounter Summary ---
Author Organization [facility] Address [address] [place] [address] Care Team Providers Care Manager Diversity Name Role Phone Dino Harrell MD Primary Care Provider Unavail able Francisco Syed PA-C Primary Care Provider [phone] Encounter Details Date Type Department Care Team Description 04/24/2012 Release of Information Medical Records [address] [place] [address] Abstract, Provider Social History Tobacco Use Types [...] on filedocumented in this encounter Care Teams Manager Diversity Relationship Specialty Start Date End Date Dino Harrell MD PCP - General Internal Medicine 04/21/12 03/22/20 Francisco Syed PA-C [address] [place] [id number] PCP - General Internal Medicine 03/23/20 documented as of this encounter
--- OUTSIDE RECORDS SUMMARY | 2024-08-21 12:18 | XMS_ITS | Encounter Summary ---
Author Organization [facility] Address [address] [place] [address] Care Team Providers Care Ward Attendant Name Role Phone Dino Harrell MD Primary Care Provider Unavail able Francisco Syed PA-C Primary Care Provider [phone] Encounter Details Date Type Department Care Team Description 06/10/2017 PNO Controlled Substance Contract Medical Records [address] [place] [address] Abstract, Provider Social History Tobacco Use Types [...] on filedocumented in this encounter Care Teams Ward Attendant Relationship Specialty Start Date End Date Dino Harrell MD PCP - General Internal Medicine 04/21/12 03/22/20 Francisco Syed PA-C [address] [place] [address] PCP - General Internal Medicine 03/23/20 documented as of this encounter
--- OUTSIDE RECORDS SUMMARY | 2024-08-21 12:18 | XMS_ITS | Encounter Summary ---
Author Organization [facility] Address [address] [place] [address] Care Team Providers Care Clerical Administrative Assistant Name Role Phone Dino Harrell MD Primary Care Provider Unavail Francisco Kessler PA-C Primary Care Provider [phone] Encounter Details Date Type Department Care Team Description 01/02/2015 Refill Adult Medicine - [address] [address] Noemy Rizvi PA-C Social History Tobacco Use Types Packs/Day Years Used Date Smoking Tobacco: Some Days Cigarettes Smokeless Tobacco: Never Alcohol Use Standard Drinks/Week Comments Yes 5 (1 standard drink = 0.6 oz pur e alcohol) Sex Assigned at Date Recorded Male 11/10/2020 6:18 AM E DT documented as of this encounter Miscellaneous Notes * Telephone Encounter - Marilyn Mauro M.A. - 01/03/2015 8:30 AM EDTFrom: Ricco Dixon To: Noemy Rizvi PA-C Sent: 01/02/2015 3:37 PM EDT Subject: Medication Renewal Request Original authorizing provider: LAKHWINDER Schroeder would like a refill of the following medications: triamcinolone (KENALOG) 0.1 % cream [Noemy Rizvi PA-C] [facility] [address] [place] [address] AT [facility] Comment: Medication renewals requested in this message routed to other providers: lisinopril (PRINIVIL,ZESTRIL) 20 MG tablet [Dino Harrell MD] lorazepam (ATIVAN) 0.5 MG tablet [Dino Harrell MD] naproxen (NAPROSYN) 500 MG tablet [Steve Gutierrez PA-C] documented in this encounter Plan of Treatment Not on file documented as of this encounter Visit Diagnoses Not on filedocumented in this encounter Care Teams Clerical Administrative Assistant Relationship Specialty Start Date End Date Dino Harrell MD PCP - General Internal Medicine 04/21/12 03/22/20 Francisco Syed PA-C [address] [place] [id number] PCP - General Internal Medicine 03/23/20 documented as of this encounter
--- OUTSIDE RECORDS SUMMARY | 2024-08-21 12:18 | XMS_ITS | Encounter Summary ---
Author Organization [facility] Address [address] [place] [address] Care Team Providers Care Flight Engineer Performance Qualified Name Role Phone Francisco Syed PA-C Primary Care Provider +1 -[phone] Encounter Details Date Type Department Care Team Description 03/11/2023 Hospital Medical Records [address] [place] [address] Kamlesh Granados DO Social History Tobacco Use Types Packs/Day Years [...] on filedocumented in this encounter Care Teams Flight Engineer Performance Qualified Relationship Specialty Start Date End Date Francisco Syed PA-C [address] [place] [address] PCP - General Internal Medicine 03/23/20 documented as of this encounter
--- OUTSIDE RECORDS SUMMARY | 2024-08-21 12:18 | XMS_ITS | Encounter Summary ---
Author Organization [facility] Address [address] [place] [address] Care Team Providers Care Ocean Export Coordinator Name Role Phone Dino Harrell MD Primary Care Provider Unavail able Francisco Syed PA-C Primary Care Provider +1 -[phone] Encounter Details Date Type Department Care Team Description 10/17/2014 Walk In Clinic Visit Medical Records [address] [place] [address] Social History Tobacco Use Types Packs/Day Years [...] on filedocumented in this encounter Care Teams Ocean Export Coordinator Relationship Specialty Start Date End Date Dino Harrell MD PCP - General Internal Medicine 04/21/12 03/22/20 Francisco Syed PA-C [address] [place] [address] PCP - General Internal Medicine 03/23/20 documented as of this encounter
--- OUTSIDE RECORDS SUMMARY | 2024-08-21 12:18 | XMS_ITS | Encounter Summary ---
Author Organization [facility] Address [address] [place] [address] Care Team Providers Care Home Mortgage Disclosure Act Specialist Name Role Phone Dino Harrell MD Primary Care Provider Unavail Francisco Kessler PA-C Primary Care Provider +1 -[phone] Encounter Details Date Type Department Care Team Description 03/08/2017 Refill Adult Medicine [address] [address] Dino Harrell MD Social History Tobacco Use Types Packs/Day Years Used Date Smoking Tobacco: Former Cigarettes Q uit: 10/27/2014 Smokeless Tobacco: Never Alcohol Use Standard Drinks/Week Comments Yes 5 (1 standard drink = 0.6 oz pur e alcohol) Sex Assigned at Date Recorded Male 11/10/2020 6:18 AM E DT documented as of this encounter Miscellaneous Notes * Telephone Encounter - Altagracia Martin C.M.A. - 03/10/2017 11:40 AM EDTFrom: Ricco Dixon To: Dino Harrell MD Sent: 03/08/2017 7:21 PM EDT Subject: Medication Renewal Request Original authorizing provider: MD Ricco Mcdonald would like a refill of the following medications: pantoprazole (PROTONIX) 40 MG tablet [Dino Harrell MD] lisinopril (PRINIVIL,ZESTRIL) 20 MG tablet [Dino Harrell MD] lorazepam (ATIVAN) 0.5 MG tablet [Dino Harrell MD] Preferred pharmacy: [facility] [address] [place], [place] [address] [facility] Comment: documented in this encounter Plan of Treatment Not on file documented as of this encounter Visit Diagnoses Diagnosis Gastroesophageal reflux disease without esophagitis Esophageal reflux documented in this encounter Care Teams Home Mortgage Disclosure Act Specialist Relationship Specialty Start Date End Date Dino Harrell MD PCP - General Internal Medicine 04/21/12 03/22/20 Francisoc Syed PA-Luis [address] [place] [address] PCP - General Internal Medicine 03/23/20 documented as of this encounter
--- OUTSIDE RECORDS SUMMARY | 2024-08-21 12:18 | XMS_ITS | Encounter Summary ---
Author Organization [facility] Address [address] [place] [address] Care Team Providers Care Incinerator Plant Laborer Name Role Phone Dino Harrell MD Primary Care Provider Unavail Francisco Kessler PA-C Primary Care Provider +1 -[phone] Encounter Details Date Type Department Care Team Description 01/02/2015 Refill Adult Medicine [address] [address] Steve Gutierrez PA-C Social History Tobacco Use Types Packs/Day Years Used Date Smoking Tobacco: Some Days Cigarettes Smokeless Tobacco: Never Alcohol Use Standard Drinks/Week Comments Yes 5 (1 standard drink = 0.6 oz pur e alcohol) Sex Assigned at Date Recorded Male 11/10/2020 6:18 AM E DT documented as of this encounter Miscellaneous Notes * Telephone Encounter - Marilyn Mauro M.A. - 01/03/2015 8:28 AM EDTFrom: Ricco Dixon To: Steve Gutierrez PA-C Sent: 01/02/2015 3:37 PM EDT Subject: Medication Renewal Request Original authorizing provider: LAKHWINDER Cooper would like a refill of the following medications: naproxen (NAPROSYN) 500 MG tablet [Steve Gutierrez PA-C] [facility] [address] [place] [address] [facility] Comment: Medication renewals requested in this message routed to other providers: lisinopril (PRINIVIL,ZESTRIL) 20 MG tablet [Dino Harrell MD] lorazepam (ATIVAN) 0.5 MG tablet [Dino Harrell MD] triamcinolone (KENALOG) 0.1 % cream [Noemy Rizvi PA-C] documented in this encounter Plan of Treatment Not on file documented as of this encounter Visit Diagnoses Diagnosis Arthralgia of hip, left- Primary Pain in joint, pelvic region and thigh documented in this encounter Care Teams Incinerator Plant Laborer Relationship Specialty Start Date End Date Dino Harrell MD PCP - General Internal Medicine 04/21/12 03/22/20 Francisco Syed PA-C [address] [place] [address] PCP - General Internal Medicine 03/23/20 documented as of this encounter
--- OUTSIDE RECORDS SUMMARY | 2024-08-21 12:18 | XMS_ITS | Clinical Summary ---
Author Organization [facility] Address [address] [place] [address] Care Team Providers Care Straw Hat Presser Name Role Phone Francisco Syed PA-C Primary Care Provider +1 -[phone] Allergies Active Allergy Reactions Severity Noted Date Comments Amoxicillin 06/07/2017 rash Medications Medication Sig Dispensed Refills Start Date End Date Status ALBUTEROL SULFATE 108 (90 Base) MCG/ACT Aero Soln Inhale 2 Puffs into the lungs 4 times daily as needed for Cough, Wheezing or Shortness of Breath. 8.5 Inhaler 1 09/16/2019 Active naproxen (NAPROSYN) 500 MG tabletIndications :Arthralgia of hip, left Take 1 Tablet by mouth 2 times daily (with meals). 180 Tablet 3 10/26/2022 Active lorazepam (ATIVAN) 0.5 MG tablet TAKE 1 TABLET BY MOUTH EVERY DAY 28 Tablet 0 10/30/2023 Active fluticasone 50 MCG/ACT nasal spray USE 1 SPRAY IN EACH NOSTRILTWICE DAILY 48 g 0 04/15/2024 Active sertraline (ZOLOFT) 100 MG tablet TAKE 1 TABLET DAILY 90 Tablet 1 04/23/2024 Active Synthroid 50 MCG tablet TAKE 1 TABLET DAILY 90 Tablet 1 04/23/2024 Active Active Problems Problem Noted Date Choledocholithiasis 03/15/2019 Overview: ERCP and stone extraction, 01/23/2019 Acute cholangitis 02/09/2019 Overview: ERCP 01/23/2019, Dr. Lei Prediabetes 08/22/2013 Mixed hyperlipidemia 12/10/2012 Overview: LDL cholesterol 137, 05/06/2012. HTN (hypertension) 04/22/2012 Hypothyroidism 04/22/2012 GERD (gastroesophageal reflux disease) 0 04/22/2012 Anxiety 04/22/2012 Obesity (BMI 30-39.9) 04/22/2012 Resolved Problems Problem Noted Date Resolved Date Tobacco use disorder 06/12/2012 03/23/2020 Encounters Date Type Specialty Care Team Description 05/27/2024 Land Mobile Radio Technician Report Kamlesh Granados DO from Last 3 Months Immunizations Name Administration Dates Next Due COVID-19 (Pfizer) 07/09/2021,12/16/2020,11/03/19 21 COVID-19 (Pfizer) Pt Reported 12/16/2020, 021 Covid-19 Bivalent (Pfizer) 09/20/2022 Influenza (> 6 Months) 06/15/2016,06/12/2013, Influenza Vaccine-quadrivalent 4 Years Plus 05/29 Shingrix (Recombinant zoster vaccine) 01/09/2021 TD (STATE SUPPLIED FOR ADULTS AND CHILDREN) 09/28 Tdap 04/22/2012 Family History Medical History Relation Name Comments [place] Esophageal Father CA Prostate Father Diabetes Father [place] Mother [place] Breast Sister 3 Relation Name Status Comments Brother 1 Alive HTN, DMII Brother 2 Alive Father Alive DMII, Prostate [place], HTN Mother Alive [place] (71), HTN, H ypothyroid Sister 1 Alive HTN Sister 2 Alive Sister 3 Social History Tobacco Use Types Packs/Day Years Used Date Smoking Tobacco: Former Cigarettes 1 15 Q uit: 10/27/2014 Smokeless Tobacco: Never Tobacco Cessation:Counseling Given: Not Answered Alcohol Use Standard Drinks/Week Comments Yes 5 (1 standard drink = 0.6 oz pur e alcohol) occ Sex Assigned at Date Recorded Male 11/10/2020 6:18 AM E DT Last Filed Vital Signs Vital Sign Reading Time Taken Comments Blood Pressure 125/81 10/30/2023 8:14 AM EDT Pulse 76 10/30/2023 8:14 AM EDT Temperature 36 ??C (96.8 ??F) 10/30/2023 8:14 AM EDT Respiratory Rate 14 10/30/2023 8:14 AM EDT Oxygen Saturation 97% 08/01/2019 2:49 PM EST Inhaled Oxygen Concentration - - Weight 112 kg (247 lb) 10/30/2023 8:14 AM EDT Height 175.3 cm (5' 9 ) 10/30/2023 8:14 AM EDT Body Mass Index 36.48 10/30/2023 8:14 AM EDT Plan of Treatment Health Maintenance Due Date Last Done Comments SHINGLES VACCINE (2 of 2) 03/06/2021 01/09/2021 Covid-19 Vaccine (2022-2 4 season) 2024 09/20/2022, 09/20/2022, 07/09/2021, Additional history exists INFLUENZA (#1) 2024 06/07/2017, 05/29, 06/12/2013, Additional history exists BMI CHECK/ADVISE 07/29/2024 10/30/2023, , 03/23/2022, Additional history exists BASELINE HEALTH EXAM 40-64 11/05/202411/05, 10/26/2022, 02/08/2018, Additional history exists CHOLESTEROL SCREENING 10/29/2028 10/30/2023 , 05/21/2022, 05/12/2021, Additional history exists COLON CANCER SCREENING 05/23/2030 05/23/2020 DTAP/TDAP/TD (3 - Td or Tdap) 10/26/2032 10/26/2022, 04/22/2012 PNEUMOCOCCAL VACCINE FOR HIG H RISK PATIENTS (#1) 2033 HEPATITIS C SCREENING Completed 05/21/2022 Care Teams Straw Hat Presser Relationship Specialty Start Date End Date Francisco Syed PA-C [address] [place] [id number] PCP - General Internal Medicine 03/23/20
--- OUTSIDE RECORDS SUMMARY | 2024-08-21 12:18 | XMS_ITS | Encounter Summary ---
Author Organization [facility] Address [address] [place] [address] Care Team Providers Care Auditor Name Role Phone Francisco Syed PA-C Primary Care Provider +1 -[phone] Reason for Visit * Reason Comments E-prescribe Rx Request Encounter Details Date Type Department Care Team Description 01/12/2024 Refill Adult Medicine [facility] [address] [place] [address] Francisco Syed PA-C [address] [place] [address] E-prescribe Rx Request Social History Tobacco Use Types Packs/Day Years Used Date Smoking Tobacco: Former Cigarettes 1 15 Q uit: 10/27/2014 Smokeless Tobacco: Never Alcohol Use Standard Drinks/Week Comments Yes 5 (1 standard drink = 0.6 oz pur e alcohol) occ Sex Assigned at Date Recorded Male 11/10/2020 6:18 AM E DT documented as of this encounter Miscellaneous Notes * Telephone Encounter - Cleveland Acosta M.A. - 01/12/2024 6:31 PM EDT Last ov 10/30/23 next ov 05/08/24 Lab Results Component Value Date NA 142 10/30/2023 K 4.4 10/30/2023 CO2 27 10/30/2023 CL 109 10/30/2023 BUN 12 10/30/2023 CREAT 0.80 10/30/2023 GLU 112 10/30/2023 CA 9.4 10/30/2023 GFR 105 10/30/2023 documented in this encounter Plan of Treatment Not on file documented as of this encounter Visit Diagnoses Not on filedocumented in this encounter Care Teams Auditor Relationship Specialty Start Date End Date Francisco Syed PA-C [address] [place] [address] PCP - General Internal Medicine 03/23/20 documented as of this encounter
--- OUTSIDE RECORDS SUMMARY | 2024-08-21 12:19 | XMS_ITS | Encounter Summary ---
Author Organization [facility] Address [address] [place] [address] Care Team Providers Care Seed Packer Name Role Phone Francisco Syed PA-C Primary Care Provider +1 -[phone] Encounter Details Date Type Department Care Team Description 06/06/2021 Pt. Referral Request [facility] Ramila [address] [place], [place] [id number] Md Ramila Social History Tobacco Use Types Packs/Day Years Used Date Smoking Tobacco: Former Cigarettes Q uit: 10/27/2014 Smokeless Tobacco: Never Alcohol Use Standard Drinks/Week Comments Yes 5 (1 standard drink = 0.6 oz pur e alcohol) Sex Assigned at Date Recorded Male 11/10/2020 6:18 AM E DT COVID-19 Exposure Response Date Recorded In the last month, have you been in contact with someone who was confirmed or suspected to have Coronavirus / COVID-19? No / Unsure 05/12/2021 4:00 PM EDT documented as of this encounter Plan of Treatment Not on file documented as of this encounter Visit Diagnoses Not on filedocumented in this encounter Care Teams Seed Packer Relationship Specialty Start Date End Date Francisco Syed PA-C [address] [place], [place] [phone] PCP - General Internal Medicine 03/23/20 documented as of this encounter
--- OUTSIDE RECORDS SUMMARY | 2024-08-21 12:19 | XMS_ITS | Encounter Summary ---
Author Organization [facility] Address [address] [place] [address] Care Team Providers Care Campaign Management Specialist Name Role Phone Francisco Syed PA-C Primary Care Provider +1 -[phone] Encounter Details Date Type Department Care Team Description 06/07/2021 Telephone Adult Medicine [facility] [address] [place] [address] Francisco Syed PA-C [address] [place] [address] Social History Tobacco Use Types Packs/Day Years [...] on filedocumented in this encounter Care Teams Campaign Management Specialist Relationship Specialty Start Date End Date rFancisco Syed PA-C [address] [place] [address] PCP - General Internal Medicine 03/23/20 documented as of this encounter
--- OUTSIDE RECORDS SUMMARY | 2024-08-21 12:19 | XMS_ITS | Encounter Summary ---
Author Organization [facility] Address [address] [place] [address] Care Team Providers Care Network Operations Manager Name Role Phone Dino Harrell MD Primary Care Provider Unavail able Francisco Syed PA-C Primary Care Provider +1 -[phone] Encounter Details Date Type Department Care Team Description 06/29/2015 Refill Adult Medicine [address] [address] Dino Harrell MD Social History Tobacco Use [...] on filedocumented in this encounter Care Teams Network Operations Manager Relationship Specialty Start Date End Date Dino Harrell MD PCP - General Internal Medicine 04/21/12 03/22/20 Francisco Syed PA-C [address] [place] [address] PCP - General Internal Medicine 03/23/20 documented as of this encounter
--- OUTSIDE RECORDS SUMMARY | 2024-08-21 12:19 | XMS_ITS | Encounter Summary ---
Author Organization [facility] Address [address] [place] [address] Care Team Providers Care Care Management Specialist Name Role Phone Francisco Syed PA-C Primary Care Provider +1 -[phone] Encounter Details Date Type Department Care Team Description 09/26/2021 Bass Singer Report Medical Records [address] [place] [address] Ismael Cain Social History Tobacco Use Types Packs/Day Years [...] on filedocumented in this encounter Care Teams Care Management Specialist Relationship Specialty Start Date End Date Francisco Syed PA-C [address] [place] [address] PCP - General Internal Medicine 03/23/20 documented as of this encounter
--- OUTSIDE RECORDS SUMMARY | 2024-08-21 12:19 | XMS_ITS | Encounter Summary ---
Author Organization [facility] Address [address] [place] [address] Care Team Providers Care Road Grader Operator Name Role Phone Dino Harrell MD Primary Care Provider Unavail able Francisco Syed PA-C Primary Care Provider +1 -[phone] Encounter Details Date Type Department Care Team Description 10/04/2015 TEST FIXTURE ASSEMBLER/MassPat Report Medical Records [address] [place] [address] Abstract, Provider Social History Tobacco Use Types [...] on filedocumented in this encounter Care Teams Road Grader Operator Relationship Specialty Start Date End Date Dino Harrell MD PCP - General Internal Medicine 04/21/12 03/22/20 Francisco Syed PA-C [address] [place] [address] PCP - General Internal Medicine 03/23/20 documented as of this encounter
--- OUTSIDE RECORDS SUMMARY | 2024-08-21 12:19 | XMS_ITS | Encounter Summary ---
Author Organization [facility] Address [address] [place] [address] Care Team Providers Care Transfer Machine Operator Name Role Phone Dino Harrell MD Primary Care Provider Unavail Francisco Kessler PA-C Primary Care Provider +1 -[phone] Reason for Visit * Reason Comments E-prescribe Rx Request Encounter Details Date Type Department Care Team Description 10/12/2019 Refill Adult Medicine [address] [address] Dino Harrell MD E-prescribe Rx Request Social History Tobacco Use Types Packs/Day Years Used Date Smoking Tobacco: Former Cigarettes Q uit: 10/27/2014 Smokeless Tobacco: Never Alcohol Use Standard Drinks/Week Comments Yes 5 (1 standard drink = 0.6 oz pur e alcohol) Sex Assigned at Date Recorded Male 11/10/2020 6:18 AM E DT documented as of this encounter Miscellaneous Notes * Telephone Encounter - Rohini Hameed - 10/14/2019 10:00 AM EDT Lab Results Component Value Date NA 140 05/28/2019 K 4.0 05/28/2019 CO2 27 05/28/2019 CL 106 05/28/2019 BUN 12 05/28/2019 CREAT 0.76 05/28/2019 GLU 79 05/28/2019 CA 9.7 05/28/2019 GFR > 60 05/28/2019 * Telephone Encounter - Janessa Carrera 10/12/2019 1:09 PM EDT Patient would like script to be: E-PRESCRIBED/FAXED TO PHARMACY WHEN WAS THE PATIENT'S LAST APPOINTMENT IN ADULT MEDICINE? 08/01/2019 WHEN WAS THE LAST TIME THE PATIENT SAW THEIR PCP? 05/28/19 Does patient have an upcoming appointment? No-patient refused appointment, will call back to book appointment (THE MEDICATION REQUESTED IS ON THE MED LIST ABOVE) All of the medications requested were on the CURRENT MEDS list Did you check the Pharmacy information above?: YES Patient wants: 30 -day supply Is this a mail order prescription request ? NO If the refill is from a FAXED refill request what is the RX # listed on the fax? N/A Patients current insurance carrier is: Payor: [employer]-ALF/PPO POS / Plan: BS PPO F 1+/$0 / Product Type: PPO [id number] documented in this encounter Plan of Treatment Not on file documented as of this encounter Visit Diagnoses Not on filedocumented in this encounter Care Teams Transfer Machine Operator Relationship Specialty Start Date End Date Dino Harrell MD PCP - General Internal Medicine 04/21/12 03/22/20 Francisco Syed PA-C [address] [place] [address] PCP - General Internal Medicine 03/23/20 documented as of this encounter
--- OUTSIDE RECORDS SUMMARY | 2024-08-21 12:19 | XMS_ITS | Encounter Summary ---
Author Organization [facility] Address [address] [place] [address] Care Team Providers Care Customer Associate Name Role Phone Dino Harrell MD Primary Care Provider Unavail Francisco Kessler PA-C Primary Care Provider +1 -[phone] Encounter Details Date Type Department Care Team Description 04/25/2013 Refill Adult Medicine [address] [address] Jena Rosenberg NP Social History Tobacco Use Types Packs/Day Years Used Date Smoking Tobacco: Some Days Cigarettes Smokeless Tobacco: Never Alcohol Use Standard Drinks/Week Comments Yes 5 (1 standard drink = 0.6 oz pur e alcohol) Sex Assigned at Date Recorded Male 11/10/2020 6:18 AM E DT documented as of this encounter Miscellaneous Notes * Telephone Encounter - Marilyn Mauro M.A. - 04/27/2013 9:01 AM EDT Appt 06/12 with pcp * Telephone Encounter - Seymour Felix - 04/27/2013 7:39 AM EDTFrom: RANDI DIXON To: Jena Rosenberg NP Sent: Sat Apr 25, 2013 9:40 AM Subject: Medication Renewal Request Original authorizing provider: JOS Poon would like a refill of the following medications: Pantoprazole Sodium 40 MG PACK [Jena Rosenberg NP] Preferred pharmacy: [facility] [address] [place], [place] [address] [address] Comment: Doctor Julio Csear,I ran out of my Lorazapam. Also I had refills left on the Pantoprazole but they . Thank you. Medication renewals requested in this message routed to other providers: lorazepam (ATIVAN) 0.5 MG tablet [Dino Harrell MD] documented in this encounter Plan of Treatment Not on file documented as of this encounter Visit Diagnoses Not on filedocumented in this encounter Care Teams Customer Associate Relationship Specialty Start Date End Date Dino Harrell MD PCP - General Internal Medicine 04/21/12 03/22/20 Francisco Syed PA-C [address] [place] [address] PCP - General Internal Medicine 03/23/20 documented as of this encounter
--- OUTSIDE RECORDS SUMMARY | 2024-08-21 12:19 | XMS_ITS | Encounter Summary ---
Author Organization [facility] Address [address] [place] [address] Care Team Providers Care Staff Sonographer Name Role Phone Francisco Syed PA-C Primary Care Provider +1 -[phone] Encounter Details Date Type Department Care Team Description 03/31/2020 Refill Gastroenterology - [address] [place] [address] Blue Reynolds MD [address] [place] [phone] Social History Tobacco Use Types Packs/Day Years [...] have Coronavirus / COVID-19? No / Unsure 04/02/2020 1:20 PM EDT documented as of this encounter Plan of Treatment Not on file documented as of this encounter Visit Diagnoses Not on filedocumented in this encounter Care Teams Staff Sonographer Relationship Specialty Start Date End Date Francisco Syed PA-C [address] [place], [place] [phone] PCP - General Internal Medicine 03/23/20 documented as of this encounter
--- OUTSIDE RECORDS SUMMARY | 2024-08-21 12:19 | XMS_ITS | Encounter Summary ---
Author Organization [facility] Address [address] [place] [address] Care Team Providers Care Coater Operator Name Role Phone Dino Harrell MD Primary Care Provider Unavail able Francisco Syed PA-C Primary Care Provider +1 -[phone] Encounter Details Date Type Department Care Team Description 09/19/2018 [facility] [address] [place] [address] Abstract, Provider Social History Tobacco Use Types [...] on filedocumented in this encounter Care Teams Coater Operator Relationship Specialty Start Date End Date Dino Harrell MD PCP - General Internal Medicine 04/21/12 03/22/20 Francisco Syed PA-C [address] [place] [address] PCP - General Internal Medicine 03/23/20 documented as of this encounter
--- OUTSIDE RECORDS SUMMARY | 2024-08-21 12:19 | XMS_ITS | Encounter Summary ---
Author Organization [facility] Address [address] [place] [address] Care Team Providers Care Cash Applications Analyst Name Role Phone Francisco Syed PA-C Primary Care Provider +1 -[phone] Encounter Details Date Type Department Care Team Description 01/17/2022 Operations Assistant Report Medical Records [address] [place], [place] [phone] [place] [address] Social History Tobacco Use Types Packs/Day Years [...] on filedocumented in this encounter Care Teams Cash Applications Analyst Relationship Specialty Start Date End Date Francisco Syed PA-C [address] [place] [address] PCP - General Internal Medicine 03/23/20 documented as of this encounter
== END 2024-08-21 12:10 | disposition home or self-care (01) ==
PROVIDERS: Visit Provider Physician Assistant
DX: B34.9 Viral infection, unspecified (principal)